=== PATIENT | female | born 2000 | race Hispanic/Latino ===

== ENCOUNTER 2023-10-14 20:06 | Emergency (ER) | payer BC ==
[~2023-10-14] VITALS: Ht 154.9 cm; Wt 60.8 kg
[2023-10-14] MEDS: MORPHINE 2 MG SYG IVP ONE (20:43)
[2023-10-14] MEDS: ONDANSETRON 4MG INJ IVP ONE (20:43)
[2023-10-14 20:51] LABS: APPEARANCE,URINE CLOUDY (CLEAR); BILIRUBIN,URINE NEGATIVE (NEGATIVE); COLOR,URINE LIGHT-YELLOW (YELLOW); GLUCOSE, URINE (UA) NEGATIVE (NEGATIVE); KETONES,URINE 5 mg/dL (NEGATIVE); LEUKOCYTE ESTERASE ,URINE NEGATIVE Leu/uL (NEGATIVE); NITRATE,URINE NEGATIVE (NEGATIVE); OCCULT BLOOD,URINE SMALL (NEGATIVE); PH,URINE 7.5 (5.0-8.0); PROTEIN,URINE NEGATIVE (NEGATIVE); UROBILINOGEN,URINE 0.2 mg/dL (0.2-1.0)
[2023-10-14 20:55] LABS: ADD UA MICROSCOPIC YES; HCG,QUALITATIVE URINE NEGATIVE (NEGATIVE)
[2023-10-14 21:03] LABS: BASOPHILS # (AUTO) 0.02 K/uL (0.00-0.20); BASOPHILS % (AUTO) 0.2 % (0.0-5.0); EOSINOPHILS # (AUTO) 0.09 K/uL (0.00-0.70); EOSINOPHILS % (AUTO) 0.8 % (0.0-8.0); HEMATOCRIT 37.9 % (36-48); IMMATURE GRANULOCYTE ABSOLUTE 0.04 K/uL (0-1); LYMPHOCYTES # (AUTO) 1.3 K/uL (1.0-4.8); LYMPHOCYTES % (AUTO) 11.7 % (21.0-51.0); MEAN CORPUSCULAR HEMOGLOBIN 30.8 pg (27.0-33.0); MEAN CORPUSCULAR HGB CONC 34.6 g/dL (32.0-36.0); MONOCYTES # (AUTO) 0.6 K/uL (0.1-1.0); NEUTROPHILS % (AUTO) 81.9 % (40.0-77.0); PLATELET COUNT (AUTO) 252 K/uL (130-400); RED BLOOD CELL COUNT(AUTO) 4.26 MIL/uL (4.00-5.50); RED CELL DISTRIBUTION WIDTH 12.4 % (11.0-15.5)
[2023-10-14 21:08] LABS: BACTERIA,URINE RARE /HPF (None Seen); SQUAMOUS EPITHELIAL CELL,UR RARE /HPF (0-2); YEAST,URINE BUDDING FEW /HPF (None Seen)
[2023-10-14 21:09] LABS: CREATININE 0.8 mg/dL (0.5-1.0); POTASSIUM 3.2 mmol/L (3.5-5.1)
[2023-10-14 21:19] LABS: ALBUMIN 4.4 g/dL (3.5-5.0); BILIRUBIN,TOTAL 0.5 mg/dL (0.2-1.0); TOTAL PROTEIN, SERUM 7.7 g/dL (6.0-8.3)
[2023-10-14] MEDS ORDERED: IOHEXOL-350 75 ML VIAL IV ONE (21:40)
[2023-10-14] MEDS: DiphenhydrAMINE HCL 50 MG/ML VIAL IM STA (21:45)
[2023-10-14] MEDS: POTASSIUM BICARB/CIT AC 25 MEQ TABLET.EFF PO STA (23:35)
[2023-10-14 23:44] VITALS: BP 110/62; PULSE 86; RESP 16; O2SAT 100
== END 2023-10-14 23:47 | disposition home or self-care (01) ==
LOC: EDH 20:06
DX: R10.11 Right upper quadrant pain (principal); R10.31 Right lower quadrant pain; R74.8 Abnormal levels of other serum enzymes; E87.6 Hypokalemia; R10.2 Pelvic and perineal pain; Z88.8 Allergy status to other drugs, medicaments and biological substances
CPT/HCPCS: 99284; 74177; 96374; 96375; 82550; 84484; 80053; 84702; 83690; 85025; 87088; 86140; 81001; 81025; 36415; 93005; 96372; J1200; J2270; J2405; Q9967